=== PATIENT | male | born 1985 | race Caucasian/White ===

== ENCOUNTER 2017-01-04 19:55 | Emergency (ER) | payer SELFPAY ==
--- NOTE | 2017-01-04 20:34 | C.PDOC ---
History Of Present Illness 31M c/o left side chest pain constant for the last 3 to 4 days. he says his father rather suddenly today and after this his pain became much worse. assoc nausea and some sob. no exac or reliev fx. he denies any pmh but has FH- both parents developed heart problems in their 40's. Time Seen by Provider: 01/04/17 20:23 Chief Complaint (Nursing): Chest Pain Past Medical History Vital Signs: Last Vital Signs Temp 97.8 F 01/04/17 22:00 Pulse 66 01/04/17 22:00 Resp 16 01/04/17 22:00 BP 116/79 01/04/17 22:00 Pulse Ox 97 01/06/17 18:23 Family History: States: [place] - Social History Hx Alcohol Use: No Hx Substance Use: No - Immunization History Hx Tetanus Toxoid Vaccination: No Hx Influenza Vaccination: No Hx Pneumococcal Vaccination: No Review Of Systems Constitutional: Negative for: Fever, Chills Cardiovascular: Positive for: Chest Pain, Light Headedness. Negative for: Edema Respiratory: Positive for: Shortness of Breath. Negative for: Cough, Hemoptysis Gastrointestinal: Positive for: Nausea. Negative for: Vomiting, Abdominal Pain Musculoskeletal: Negative for: Neck Pain Neurological: Negative for: Weakness, Numbness, Headache Physical Exam - Physical Exam Appears: Non-toxic, No Acute Distress Skin: Warm, Dry Head: Atraumatic Eye(s): bilateral: PERRL Nose: No Epistaxis Oral Mucosa: Moist Lips: No Swelling Cardiovascular: Rhythm Regular Respiratory: No Decreased Breath Sounds, No Accessory Muscle Use, No Rales, No Rhonchi, No Stridor, No Wheezing Gastrointestinal/Abdominal: Soft, No Tenderness Extremity: No Swelling Pulses: Left Radial: Normal, Right Radial: Normal Neurological/Psych: Oriented x3, Normal Motor, Normal Sensation, Other (no focal deficits) ED Course And Treatment - Laboratory Results Result Diagrams: 01/04/17 20:48 01/04/17 20:48 O2 Sat by Pulse Oximetry: 97 Medical Decision Making Medical Decision Making: ecg- nsr 75, nl axis, no acute ischemia cxr- nad pt pain resolved after rx wells low risk perc neg heart low risk Disposition - Disposition Referrals: [facility] at [facility] [Outside] Disposition: HOME/ ROUTINE Disposition Time: 22:07 Condition: GOOD Additional Instructions: Please follow up with a primary doctor in the next week. Return to the ER for any worsening symptoms or for any other concerns. Instructions: Chest Pain (ED) Forms: General Discharge Instructions - Clinical Impression Clinical Impression: Chest pain
[2017-01-04 20:55] LABS: BASO % 0.5 % (0.0-2.0); EOS # 0.3 K/uL (0.0-0.7); EOS % 3.5 % (0.0-4.0); LYMPH # 3.2 K/uL (1.0-4.3); LYMPH % 41.2 % (20.0-40.0); MEAN CELL VOLUME 85.8 fL (80.0-94.0); MEAN CORPUSCULAR HGB CONC 33.8 g/dL (33.0-37.0); MEAN PLATELET VOLUME 9.5 fL (7.2-11.7); MONO # 0.6 K/uL (0.0-0.8); MONO % 7.4 % (0.0-10.0); NEUT # 3.7 K/uL (1.8-7.0); NEUT % 47.4 % (50.0-75.0); RBC 4.82 Mil/uL (4.40-5.90); RED CELL DISTRIBUTION WIDTH 12.9 % (11.5-14.5); WHITE BLOOD COUNT 7.7 K/uL (4.8-10.8)
[2017-01-04 21:09] LABS: ALB/GLOB RATIO 1.2 (1.0-2.1); AST/SGOT 29 U/L (17-59); GFR AFRICAN-AMERICAN > 60; GFR NON-AFRICAN AMERICAN > 60
[2017-01-04 21:10] LABS: ALT/SGPT 54 U/L (21-72); BLOOD UREA NITROGEN 8 mg/dL (9-20)
[2017-01-04 22:07] VITALS: BP 116/79; PULSE 66; RESP 16; TEMP 97.8
--- NOTE | 2017-01-05 08:19 | RAD ---
HISTORY: Chest pain COMPARISON: No prior. TECHNIQUE: Chest PA and lateral FINDINGS: LUNGS: No active pulmonary disease. PLEURA: No significant pleural effusion identified. No pneumothorax apparent. CARDIOVASCULAR: Normal. OSSEOUS STRUCTURES: No significant abnormalities. VISUALIZED UPPER ABDOMEN: Normal. OTHER FINDINGS: None. IMPRESSION: No active disease.
[2017-01-06 18:24] VITALS: O2SAT 97
--- NOTE | 2017-01-14 16:06 | CARD ---
APPROVED REPORT EKG Measurement Heart [id number] <Conclusion> Normal sinus rhythm Normal ECG
== END 2017-01-04 22:07 | disposition home or self-care (01) ==
LOC: C.ER 19:55
DX: R07.89 Other chest pain (principal)
CPT/HCPCS: 71020; 80053; 83880; 84484; 85025; 96374; 99284; J1885

== ENCOUNTER 2018-09-02 06:25 | Emergency (ER) | payer OTHER ==
[2018-09-02 06:36] VITALS: O2SAT 99
--- NOTE | 2018-09-02 07:19 | C.PDOC ---
History Of Present Illness 33 y/o male c/o fever to 102, diffuse myalgias, sore throat, cough and nausea since night. no flu vax this year. HPI: Influenza Time Seen by Provider: 09/02/18 07:03 Chief Complaint: Flu-like Symptoms History Per: Patient, Family Exam Limitations: no limitations Have you had recent travel within the past 21 days to any of the following countries: [place], [place], [place] or [place]?: No Onset/Duration Of Symptoms: Days (3.5), Worse Since () Symptoms include: fever, bodyaches, sore throat, cough, other (nausea). denies: vomiting Sick Contacts (Context): None Hx Influenza Vaccination: No Risk factors for flu complications: Yes: endocrine disorders (hypothyroid). No: adult > 65 years, chronic lung disease Past Medical History Reviewed: Historical Data, Nursing Documentation, Vital Signs Vital Signs: Last Vital Signs Temp 99.4 F 09/02/18 06:34 Pulse 95 H 09/02/18 06:34 Resp 18 09/02/18 06:34 BP 129/77 09/02/18 06:34 Pulse Ox 99 09/02/18 06:34 - Medical History PMH: Hypothyroidism Family History: States: [place] - Social History Hx Alcohol Use: No Hx Substance Use: No - Immunization History Hx Tetanus Toxoid Vaccination: No Hx Influenza Vaccination: No Hx Pneumococcal Vaccination: No Review Of Systems Constitutional: Positive for: Fever, Chills, Weakness ENT: Positive for: Throat Pain Cardiovascular: Negative for: Chest Pain Respiratory: Positive for: Cough. Negative for: Shortness of Breath Gastrointestinal: Positive for: Nausea. Negative for: Vomiting, Abdominal Pain, Diarrhea Musculoskeletal: Positive for: Back Pain, Other (diffuse myalgias) Neurological: Negative for: Numbness Physical Exam - Physical Exam Appears: Non-toxic, Other (uncomfortable) Skin: Warm, Dry Head: Atraumatic, Normacephalic Eye(s): bilateral: Normal Inspection Ear(s): Bilateral: Normal Oral Mucosa: Moist Throat: Erythema, No Exudate Neck: Supple Respiratory: No Decreased Breath Sounds, No Rales, No Rhonchi, No Wheezing Gastrointestinal/Abdominal: Bowel Sounds, Soft, No Tenderness, No Guarding, No Rebound Back: No CVA Tenderness Neurological/Psych: Oriented x3, Normal Speech, Normal Cognition Medical Decision Making Medical Decision Makin33 y/o male with hypothryoidism with flu like symptoms for 3/5 days; out of range for tamiflu, treat supportively, r/o strep 0750 pt with positive strep=- tx with amox. - ECG O2 Sat by Pulse Oximetry: 99 Disposition Counseled Patient/Family Regarding: Studies Performed, Diagnosis, Need For Followup, Rx Given - Disposition Referrals: [facility] [Outside] Disposition: HOME/ ROUTINE Disposition Time: 07:50 Condition: GOOD Additional Instructions: Gargle with warm salty water several times a day, and drink warm soothing fluids such as tea, soups. Take antibiotics until completed. Alternate Tylenol and Ibuprofen every 3 hours for pain and fever. FOllow up in medical clinic next week. Return to ER for any worse symptoms. Prescriptions: Acetaminophen [Tylenol Extra Strength] 1,000 mg PO Q6 #30 tablet Amoxicillin [Amoxil 500 mg Cap] 500 mg PO BID #20 cap Ibuprofen [Motrin] 600 mg PO TID #30 tab Instructions: Strep Throat (DC), Flu, Adult (DC) Forms: [employer] (Bulgarian), General Discharge Instructions - Clinical Impression Clinical Impression: Influenza-like illness, Strep pharyngitis
[2018-09-02 08:02] VITALS: BP 128/71; PULSE 98; RESP 19; TEMP 98.6
== END 2018-09-02 08:02 | disposition home or self-care (01) ==
LOC: C.ER 06:25
DX: J11.1 Influenza due to unidentified influenza virus with other respiratory manifestations (principal); F17.210 Nicotine dependence, cigarettes, uncomplicated
CPT/HCPCS: 87430; 87804; 96372; 99284; J1885